=== PATIENT | male | born 1955 | race Caucasian/White ===

== ENCOUNTER 2021-01-17 12:00 | Observation (INO) | payer MEDICARE, OTHER ==
[~2021-01-17] VITALS: Ht 182.9 cm; Wt 95.2 kg
[2021-01-17 12:29] LABS: BASOPHILS ABSOLUTE AUTO 0.02 K/mm3 (0.00-0.23); BASOPHILS PERCENT AUTO 0 % (0-2); EOSINOPHILS ABSOLUTE AUTO 0.05 K/mm3 (0.00-0.68); EOSINOPHILS PERCENT AUTO 1 % (0-6); Hematocrit 46.6 % (37.0-53.0); IMMATURE GRAN ABSOLUTE AUTO 0.04 K/mm3 (0.00-0.10); IMMATURE GRAN PERCENT AUTO 1 % (0-1); LYMPHOCYTES PERCENT AUTO 18 % (21-46); MONOCYTES ABSOLUTE AUTO 0.66 K/mm3 (0.16-1.47); MONOCYTES PERCENT AUTO 10 % (4-13); Mean Corpuscular HGB 32.3 pg (26.0-34.0); Mean Corpuscular HGB Conc 34.3 g/dL (31.5-36.5); Mean Corpuscular Volume 94 fL (80-100); Mean Platelet Volume 10.9 fL (9.1-12.4); NEUTROPHILS ABSOLUTE AUTO 4.62 K/mm3 (1.96-9.15); NEUTROPHILS PERCENT AUTO 70 % (41-73); Platelet Count 228 K/mm3 (150-400); RDW Coefficient Variation 12.8 % (11.7-14.2); RDW Standard Deviation 44.2 fL (35.1-46.3); Red Blood Cell Count 4.95 M/mm3 (4.30-5.90); White Blood Cell Count 6.59 K/mm3 (4.00-11.30)
[2021-01-17 13:03] LABS: Alanine Aminotransfer (ALT/SGP 26 U/L (12-78); Albumin, Blood 3.6 g/dL (3.4-5.0); Albumin/Globulin Ratio 0.9 (0.8-1.8); Alk Phos 48 U/L (50-136); Anion Gap 8 mmol/L (6-16); Aspartate Aminotrans (AST/SGOT 17 U/L (12-37); Bilirubin, Total 1.1 mg/dL (0.1-1.0); Blood Urea Nitrogen 14 mg/dL (8-24); Bun/Creatinine Ratio 12.5 (12.0-20.0); CO2, Blood 23 mmol/L (21-32); Calcium, Blood 8.8 mg/dL (8.5-10.1); Chloride, Blood 106 mmol/L (98-108); Creatinine, Blood 1.12 mg/dL (0.60-1.20); Ethanol (Alcohol), Blood, Med <3 mg/dL; Globulin, Blood 3.8 g/dL (2.2-4.0); Glomerular Filtration Rate >60 (60-); Glucose, Blood 122 mg/dL (70-99); Magnesium, Blood 1.9 mg/dL (1.6-2.4); Potassium, Blood 3.8 mmol/L (3.5-5.5); Sodium, Blood 137 mmol/L (136-145); Total Protein, Blood 7.4 g/dL (6.4-8.2); Troponin I <0.015 ng/mL (0.000-0.040)
--- NOTE | 2021-01-17 16:26 | NUR ---
Echocardiogram completed.
[2021-01-17 21:46] LABS: U Amphetamine Screen Not Detected; U Barbituate Screen Not Detected; U Benzodiazapine Screen Not Detected; U Cannabinoids Screen DETECTED; U Cocaine Screen Not Detected; U Methadone Screen Not Detected; U Methamphetamine Screen Not Detected; U Opiates Screen Not Detected; U Phencyclidine Screen Not Detected
[2021-01-17 21:47] LABS: U Buprenorphine Screen Not Detected; U Oxycodone Screen Not Detected; U Propoxyphene Screen Not Detected
--- NOTE | 2021-01-18 05:57 | NUR ---
BUILDER BEAM SUMMARY PT [id number] AND PLEASANT. STANDBY ASSIST TO BATHROOM. PT DENIES CP BUT DOES REPORT SOME SOB AT TIMES. PT STATES "I'VE HAD SOME SOB FOR A FEW YEARS NOW". PT QUITE ANXIOUS ABOUT BEING IN THE HOSPITAL AND WORKS HIMSELF UP AT TIMES. GIVEN TEMAZEPAM TO HELP WITH SLEEP WHICH PT STATED DID HELP. PT AFLUTTER ON TELE 80-90'S. OTHER VSS, WILL CONTINUE TO MONITOR.
--- NOTE | 2021-01-18 06:24 | NUR ---
CONFUSION/DELUSIONS PT BECAME QUITE AGITATED AND STATED THAT HE WAS ANGRY AND ANXIOUS. WHEN ASKED WHAT THE PROBLEM WAS THE PT SAID "OH NOTHING THAT YOU WILL BELIEVE". WHEN ASKED TO ELABORATE, THE PT STATED "WELL I HAVE A STALKER THAT I'VE BEEN DEALING WITH FOR YEARS". THE PT THEN STATED THAT A STALKER HAS BEEN SNEAKING INTO HIS HOUSE AND SHAVING HIS FACE AND HARMING HIS BODY AND HOME WHILE HE IS SLEEPING. PT STATED THAT HIS FACIAL HAIR IS "NOT THE SAME WHEN I WENT TO SLEEP LAST NIGHT". ASSURED PT THAT NOBODY HAS BEEN IN HIS ROOM BESIDE HOSPITAL STAFF. PT CALMED DOWN A BIT BUT IS STILL VERY ADAMENT THAT THINGS LIKE THIS HAVE BEEN HAPPENING SINCE 2016. PT DID GET A DOSE OF TEMAZEPAM AT 0330 TO HELP WITH SLEEP, COULD POSSIBLY BE A REACTION. WILL CONTINUE TO MONITOR PT AND REPORT CONCERNS TO ONCOMING RN.
--- NOTE | 2021-01-18 15:21 | NUR ---
AT APPROX 1415, PT TOOK OUT IV LINE ON BUE, AND HIS TELE MONITOR. PT VERBALIZED THAT HE IS LEAVING AFTER SEEING HIS PROVIDER AND WANTING TO TAKE A SHOWER. PT AGITATED AND VERY ANXIOUS TO GO HOME. PT SEEN BY DR. PITTS AT 1510.
[2021-01-18] MEDS ORDERED: ASPI81CH PO (15:47)
[2021-01-18] MEDS ORDERED: METO25 PO (15:48)
[2021-01-18] MEDS ORDERED: MELATONIN5 M1 PO (15:48)
--- NOTE | 2021-01-18 16:43 | NUR ---
DISCHARGE PT DISCHARGE THIS SHIFT, DISCHARGE ORDERS AND EDUCATION DISCUSSED WITH PATIENT. NO COMPLAINTS OR ANY ISSUES NOTED FROM PATIENT DURING DISCHARGE PROCESS. PT CALM AND COOPERATIVE. ESCORTED BY THIS RN TO HOSPITAL EXIT/ENTRANCE. IV LINES WAS PULLED BY PATIENT PRIOR TO DISCHARGE. NO ISSUES NOTED.
== END 2021-01-18 16:07 | disposition home or self-care (01) ==
LOC: ER 12:00 → MEDS 15:16 → ENPENDDIS 01-18 15:53 → MEDS 01-18 16:07
PROVIDERS: Emergency Medicine; Nurse Practitioner Acute Care; ADMIT Internal Medicine
DX: I48.91 Unspecified atrial fibrillation (principal); R77.8 Other specified abnormalities of plasma proteins; R94.6 Abnormal results of thyroid function studies; F10.239 Alcohol dependence with withdrawal, unspecified
CPT/HCPCS: 36415; 71045; 80053; 83735; 83880; 84439; 84443; 84484; 85025; 93005; 93010; 93306; 96372; 96372-59; 96374; 99285-25; A9270; G0378; G0480; J1650